=== PATIENT | female | born 1930 | race Caucasian/White ===

== ENCOUNTER 2016-12-03 21:06 | Emergency (ER) | payer MEDICARE, BC ==
[2016-12-03 15:45] LABS: WBC (NOT ORDERED) (RFLEX) 0 (0-5)
[2016-12-03 15:52] LABS: BASOPHILS 0.4 %; BASOPHILS ABSOLUTE 0.05 10/3/uL (0.0-0.16); EOSINOPHILS 8.6 %; EOSINOPHILS ABSOLUTE 1.06 10/3/uL (0.0-0.53); ER CBC TAT 0 Hrs 11 Mins; HEMATOCRIT 37.4 % (36.0-48.0); IMMATURE GRANULOCYTES 0.6 %; IMMATURE GRANULOCYTES ABSOLUTE 0.08 10/3/uL (0.0-0.11); LYMPHOCYTES 25.6 %; LYMPHOCYTES ABSOLUTE 3.16 10/3/uL (0.67-4.30); MANUAL DIFF NO %; MEAN CORPUS HGB CONC 32.1 g/dL (32.0-36.0); MEAN CORPUSCULAR HEMOGLOB 27.6 pg (26.0-34.0); MEAN CORPUSCULAR VOLUME 86.2 fL (80-100); MEAN PLATELET VOLUME 9.9 fL (9.2-13.0); MONOCYTES 10.8 %; MONOCYTES ABSOLUTE 1.33 10/3/uL (0.21-1.20); NEUTROPHILS ABSOLUTE 6.66 10/3/uL (2.02-8.40); PLATELET COUNT 217 10/3/uL (150-400); RBC DISTRIBUTION WIDTH 15.7 % (12.0-16.0); RED CELL COUNT 4.34 10/6/uL (4.0-5.6); WHITE BLOOD CELLS 12.3 10/3/uL (4.5-10.5)
[2016-12-03 15:58] LABS: ASCORBIC ACID (UR NOT ORDER) 20 (NEG); BILIRUBIN, URINE NEGATIVE (NEG); KETONE, URINE NEGATIVE (NEG); LEUKOCYTE ESTERASE(NOT OR NEG (NEG); NITRITE (URINE) NEG (NEG)
[2016-12-03 16:08] LABS: BUN (BLOOD UREA NITROGEN) 10 MG/DL (6-23); CALCIUM, SERUM 8.4 MG/DL (8.5-10.4); CHLORIDE, SERUM 110 MMOL/L (96-112); CO2 (CARBON DIOXIDE) 23 MMOL/L (24-34); CREATININE 1.18 MG/DL (0.55-1.02); GFR AFRICAN AMERICAN 49 ML/MIN (>=60); GFR NON AFRICAN AMERICAN 42 ML/MIN (>=60); GLUCOSE, SERUM 95 MG/DL (60-99); POTASSIUM, SERUM 4.1 MMOL/L (3.5-5.3); SGOT(AST) 22 U/L (5-40); SGPT(ALT) 15 U/L (5-65); SODIUM, SERUM 142 MMOL/L (135-148)
[2016-12-03 16:11] LABS: A/G RATIO 0.9 (0.7-1.9); ALBUMIN 3.4 G/DL (3.5-5.0); ALKALINE PHOSPHATASE 77 U/L (45-117); GLOBULIN 3.9 G/DL (2.5-4.1); TOTAL BILIRUBIN 0.3 MG/DL (0-1.2); TOTAL PROTEIN 7.3 G/DL (6.0-8.5)
[~2016-12-03 21:06] MED LIST: ACET500CAP PO; AMITIZA8 MCG PO; ASA5GR PO; ASAB PO; ATEN50 PO; BION TEARS OPH; CLEOCIN300 MG PO; CO Q-10100 MG PO; CRESTOR40 MG PO; CYMBALTA30 PO; CYMBALTA60 PO; DURICEF PO; EFFIENT10 PO; ELIQUIS 2.5 MG2.5 MG PO; FLORASTOR250 MG; FOLIC ACID; FOLIC ACID400 MC1 PO; FOLIC PO; HALF81 PO; INDAPAMIDE1.25 MG PO; KDUR20 PO; KLOR-CON M2020 MEQ PO; L20 PO; L25 PO; LISINOPRIL40 MG PO; LOP25 PO; LOZOLTAB PO; MCZ25 PO; MICRO-K10 MEQ PO; MIRALAXPKT PO; NEXIUM40 PO; NORV10 PO; NORV5 PO; PRIN20 PO; TOPXL100 PO; VICODINTAB PO; VIT C/RHIPS/ PO; VITC500 PO; [UNRECOGNIZED DRUG - OTHER]; [UNRECOGNIZED DRUG - OTHER] OR
== END 2016-12-03 22:46 | disposition home or self-care (01) ==
LOC: ER 21:06
PROVIDERS: Emergency Medicine
DX: B35.6 Tinea cruris (principal); J44.9 Chronic obstructive pulmonary disease, unspecified; I10 Essential (primary) hypertension; I48.91 Unspecified atrial fibrillation; K21.9 Gastro-esophageal reflux disease without esophagitis; Z88.2 Allergy status to sulfonamides; Z88.0 Allergy status to penicillin; Z88.1 Allergy status to other antibiotic agents; Z79.82 Long term (current) use of aspirin; Z79.899 Other long term (current) drug therapy
CPT/HCPCS: 80053; 81001; 83690; 85025; 99284